=== PATIENT | female | born 1960 | race African-American/Black ===

== ENCOUNTER 2022-05-20 12:50 | Outpatient (CLI) | payer BC, SELFPAY ==
--- NOTE | 2022-05-20 13:17 | ECG_ITS ---
Measurements Intervals Rozel Rate: 84 P: 52 ID: [id number] QRS: 1 QRSD: 95 T: 18 QT: 356 QTc: 421 Interpretive Statements SINUS RHYTHM BASELINE ARTIFACT- I, III, AVL, V3-V4 NORMAL ECG NO PREVIOUS ECG AVAILABLE FOR COMPARISON Electronically Signed On 05-20-2022 14:41:49 [employer]PORATE LEGAL MANAGER by Kelton Patel D.O.
[2022-05-20 14:02] LABS: Anion Gap 11 mmol/L (8-16); Blood Urea Nitrogen 19 mg/dL (7-17); Calcium 9.3 mg/dL (8.4-10.2); Carbon Dioxide 29 mmol/L (22-30); Chloride 102 mmol/L (98-107); Estimated Glomerular Filt Rate > 60; Glucose 108 mg/dL (65-110); Potassium 3.5 mmol/L (3.4-5.0); Sodium 142 mmol/L (137-145)
== END 2022-05-20 12:51 | disposition home or self-care (01) ==
LOC: ANHSURGERY 12:57
PROVIDERS: Anesthesiology; Visit Provider Orthopaedic Surgery
DX: I10 Essential (primary) hypertension (principal); Z79.899 Other long term (current) drug therapy; Z01.818 Encounter for other preprocedural examination
CPT/HCPCS: 36415; 80048; 93005

== ENCOUNTER 2022-05-22 01:00 | Day surgery (SDC) | payer BC, SELFPAY ==
[2022-05-15 12:26] VITALS: BMI 32.2
--- NOTE | 2022-05-15 12:32 | PC.NURSE ---
Report to the Outpatient Waiting Room, entrance under the green pavilion located off [facility], at time 8:30 on date 05/22/22. Planned Procedure Time: 10:30. Time changes happen often and if your time is changed the preop area will call you the afternoon before. - You and your visitor will be asked to self-screen and do not enter if you have any COVID symptoms. - We encourage only one visitor and NO visitors under age 16 are allowed at this time. Your visitor will receive communication by the phone number that is given day of service. - The patient visitor is requested to social distance or may leave the building when not with patient due to restrictions. - A mask is OPTIONAL within the hospital. Patients may have clear liquids (water, carbonated beverages, clear teas, apple juice) until 3 hours prior to surgery (7:30) with a maximum of 20 ounces. - No food from midnight until time of surgery Take the following medications with a SIP of water the morning of surgery: AMLODIPINE Medications to discontinue per physician: N/A Date to take last dose: N/A Please no make-up, nail kazakh, hairspray, perfume, deodorant, or body powder the day of surgery. No jewelry (including any body piercings) or valuables the day of surgery, leave them at home. Please take a shower or bath the night before, or the morning of, surgery with an antibacterial soap. Wear comfortable, loose fitting clothing. - Jewelry must be removed prior to entering the operating room. Rings and piercings that are not removed may be cut off. - The hospital will not accept responsibility for valuables. - Please leave all valuables, including medications, at home the day of surgery. If you are going home after surgery, a licensed motorcycle delivery driver must drive you home. - NO public transportation without another adult. - We recommend that an adult stay with you for 24 hours following discharge. - We also recommend that you do not drive, make important decision, drink alcoholic beverages, or take any drugs that were not prescribed by your health care provider for at least 24 hours after your discharge time. Follow any additional instructions given to you from your surgeon. If you or anyone in your household have experienced Covid symptoms in the past week, please notify your surgeon or the nurse liaison at the phone number below for possible testing. Telephone instructions given to PT - SPRING WILKINSON and asked if any additional questions and then verbalized understanding. Patient advised to call surgeon office or pre surgery nurse liaison [phone] if any additional questions.
--- NOTE | 2022-05-20 09:38 | PM.IMHP ---
H&P: HPI History of Present Illness Date/Time: 05/20/22 09:38 Chief Complaint: The patient is a 61-year-old female who presents with an ongoing history of left knee pain. Patient reports mechanical symptoms locking catching medially pain and tenderness here worse with activity somewhat relieved by rest. She has trouble with twisting or turning squatting kneeling going up and down stairs reports aching pain that limits her daily activities also gets some swelling in the knee occasionally. This has been ongoing for a few months now despite conservative measures including cortisone therapy and anti-inflammatories. Patient underwent an MRI scan, the MRI scan shows a radial tear of the posterior horn of the medial meniscus with a 4.8 mm extrusion medially the body of the medial meniscus. The stabilizing ligaments of the knee are intact lateral meniscus is intact. She does have severe medial compartment thinning of the articular cartilage of moderate in the lateral compartment. At this point the patient is aware the above findings she knows she has pre-existing osteoarthritis may not get full relief from her knee pain from knee arthroscopy however she would like to proceed. Review of Systems Review of Systems: Ten point review of systems otherwise negative PMFSH Social History Social History Smoking status: Former smoker Tobacco type: cigarettes Additional smoking assessment comments: QUIT MANY YEARS AGO CAN'T REMEMBER WHEN Alcohol intake: never Substance use: never Substance use type: does not use Spiritual care concerns: No Meds Home Medications and Allergies Home Medications Medication Instructions Recorded Confirmed Type amlodipine 5 mg tablet 5 mg PO DAILY 05/15/22 05/15/22 History olmesartan 40 1 tablet PO DAILY 05/15/22 05/15/22 History mg-hydrochlorothiazide 25 mg tablet Allergies Allergy/AdvReac Type Severity Reaction Status Date / Time iohexol Allergy Hives Verified 05/15/22 12:23 [From contrast - CT, X-RAY] Exam Narrative: on exam the patient is noted be well-developed well-nourished female no acute distress alert oriented x3. Normal mood and affect. She has noted be 5 ft 4 in tall 185 lb BMI 31.8. Hearing and vision are intact. Respiratory is good no distress. Pulse regular rhythm. Abdomen benign. Extremities show the patient's left knee to be painful with manipulation and range of motion. She has tenderness on medial joint line with a positive Gilles exam negative Gill knee joint is otherwise stable strength is 5 5 range of motion is well-maintained with pain with extremes of motion. Mild effusion is noted In the left knee neurovascularly she is intact skin is intact. Central nervous system within normal limits. Assessment and Plan Assessment and plan (1) Tear of medial meniscus of left knee: Code(s): S83.242A - Other tear of medial meniscus, current injury, left knee, initial encounter Status: Acute Plan the patient has a medial meniscal tear left knee with the above associated findings as described in the MRI report. The patient has discussed risks benefits limitations and alternatives to surgery in great detail Dr. Hunter she is now ready to proceed with left knee arthroscopy partial medial meniscectomy proceed as indicated. The patient is scheduled to undergo surgery 05/22/2022 at [facility] with Dr. Hunter. The patient voiced understanding and agrees with the above plan.
[2022-05-22] VITALS (9 sets, daily range): BP systolic 88–145; BP diastolic 51–77; PULSE 63–83; RESP 12–20; TEMP 36.9–37.1; O2SAT 95–100
[2022-05-22] MEDS: ACETAMINOPHEN 500 MG TABLET 1000 MG PO (06:41)
[2022-05-22] MEDS: LACTATED RINGERS 1,000 ML 30 ML IV CONT (06:45)
[2022-05-22] MEDS: KETOROLAC 15 MG/ML VIAL (*BKC) IV PUSH (06:48)
--- NOTE | 2022-05-22 07:02 | WPDANESEPPF ---
Anes - Initial Pre Proc Eval Procedure: Operation Date: 05/22/22 07:30 Proposed Procedures p Left Knee Arthroscopy, Partial Medial Meniscectomy, Proceed as Indicated - Ricardo Hunter MD Date/Time: 05/22/22 07:02 Surgeon: Ricardo Hunter MD Pre Op Diagnosis: Medial Meniscus Tear Lt Knee Patient Data Age: 61 Gender: F Height: 1.61 m Weight: 86.7 kg Last Vital Signs Temp 36.9 C 05/22/22 06:19 Pulse 83 05/22/22 06:19 Resp 20 05/22/22 06:19 BP 145/75 H 05/22/22 06:19 Pulse Ox 100 05/22/22 06:19 O2 Del Method Room Air 05/22/22 06:19 Allergies Allergy/AdvReac Type Severity Reaction Status Date / Time iohexol Allergy Hives Verified 05/22/22 06:22 [From contrast - CT, X-RAY] Home Medications Medication Instructions Recorded Confirmed Type amlodipine 5 mg tablet 5 mg PO DAILY 05/15/22 05/22/22 History olmesartan 40 1 tablet PO DAILY 05/15/22 05/22/22 History mg-hydrochlorothiazide 25 mg tablet Patient hx anesthesia problems: none Family hx anesthesia problems: none Results Review: All pre-operative results and documents have been reviewed as part of the pre-operative evaluation. [facility] Past Medical History Medical History (Updated 05/22/22 @ 07:03 by Norbert Dewey MD) HTN (hypertension) Obesity Social History Social History Smoking status: Former smoker Tobacco type: cigarettes Additional smoking assessment comments: QUIT MANY YEARS AGO CAN'T REMEMBER WHEN Alcohol intake: never Substance use: never Substance use type: does not use Living arrangements: with family Spiritual care concerns: No Anes - Eval Final PreProcedure Day of Procedure 05/22/22 07:02 Patient weight: obese Heart: regular rate and rhythm Lungs: clear to auscultation and normal air movement Airway: Mallampati scale class II Neurological: alert and oriented Last oral intake: >/= 8 hours ASA classification: III Emergent: no Anesthetic plan: proceed Anesthesia type and monitoring: general LMA Results Review: All pre-operative results and documents have been reviewed as part of the pre-operative evaluation. Informed Consent: The patient's anesthetic plan and its attendant risks and benefits were discussed with the patient/family/POA. Questions were solicited and answers provided to the satisfaction of the patient/family/POA.
--- NOTE | 2022-05-22 07:05 | WPDHPUPDATE1 ---
History and Physical Update Update Date/Time: 05/22/22 07:05 History and Physical has been reviewed, including an updated exam of the patient. There are NO changes in the patient's condition. Risks, benefits, and alternatives have been discussed and questions answered. Patient agrees to proceed with procedure.
[2022-05-22] MEDS: ceFAZolin 2 GM/D5W 50 ML 2 GM/50 ML BAG IVPB (07:25)
--- NOTE | 2022-05-22 08:05 | W.PM.PROC2 ---
Procedure Note - Detailed Date of Procedure 05/22/22 Pre-op Diagnosis Medial Meniscus Tear Lt Knee Post-op Diagnosis Other (Medial meniscal tear Left knee with small lateral meniscal tear) Procedure Performed [Left] knee arthroscopy with partial medial meniscetomy Surgeon Ricardo Hunter MD Anesthesia General Description of Procedure Patient brought to the operating room and anesthetic was administered. The knee was steriley prepped and drapped in the usual manner. Standard portals were used. Superior medial portal was used for the outflow cannula, inferior lateral portal was used for the scope, inferior medial portal was used for the instruments. Arthroscopy was performed, the patellar femoral joint showed degenerative changes. The medial compartment showed a complex tear. The lateral compartment showed fraying and a small tear posteriorly. The ACL was intact. Using baskets and amaya the meniscal tears were trimmed back to a stable base so the nothing further could be pulled into the joint. Any loose or delaminated fragments were gently trimmed to a stable base. At this point the instruments were withdrawn, sutures placed and patient left the operating room in satisfactory condition. Estimated Blood Loss 20 Drains No Packing No Pathology None sent Complications No immediate complications Condition Stable Disposition PACU
[2022-05-22] MEDS: fentaNYL CITRATE INJ (*CRX) 100 MCG/2 ML VIAL 25 MCG IV PUSH ×2 (08:46→08:55)
[2022-05-22] MEDS: oxyCODONE HCL (*CRX) 5 MG TAB IR PO (09:29)
--- NOTE | 2022-05-22 10:51 | SUR.PHASEII ---
1035 pt in room treat/eval pt prior to going home, patient did well with pt
== END 2022-05-22 11:00 | disposition home or self-care (01) ==
PROVIDERS: Visit Provider Orthopaedic Surgery
PROC: (CPT 29870; principal; 2022-05-22 07:30)
DX: M23.332 Other meniscus derangements, other medial meniscus, left knee (principal); I10 Essential (primary) hypertension; Z87.891 Personal history of nicotine dependence; E66.9 Obesity, unspecified; Z68.33 Body mass index [BMI] 33.0-33.9, adult
CPT/HCPCS: 29881; 97161; A9270; J0690; J1200; J1885; J2250; J2405; J2704; J3010; J7120